=== PATIENT | female | born 1955 | race Caucasian/White ===

== ENCOUNTER 2016-12-15 16:17 | Emergency (ER) | payer SELFPAY ==
[~2016-12-15] VITALS: Ht 157.5 cm; Wt 79.4 kg
[2016-12-15 17:20] VITALS: BP 160/64
[2016-12-15] MEDS ORDERED: SULF1TAB24 PO (18:09)
--- NOTE | 2016-12-15 18:09 | PHYS DOC ---
Past Medical History Past Medical History: Diabetes-Type II, Hypertension Past Surgical History: No Surgical History Alcohol Use: None Drug Use: None Adult General Chief Complaint Chief Complaint: SKIN PROBLEM HPI HPI Patient is a 61 year old female presents to the emergency department stating that she's had abscesses on her abdomen on and off for quite some time. She states that they her leg ever come to a head or drainage any drainage. Patient does states she is an insulin-dependent diabetic in which she has been giving herself injections in the abdomen area she denies these areas that have abscesses being areas that she had provided her injections. Patient denies fever , chills or any nausea or vomiting. Patient does state that her glucoses have been running in 140s to 160s. Review of Systems Review of Systems Constitutional: Denies fever or chills [] Eyes: Denies change in visual acuity, redness, or eye pain [] HENT: Denies nasal congestion or sore throat [] Respiratory: Denies cough or shortness of breath [] Cardiovascular: No additional information not addressed in HPI [] GI: Denies abdominal pain, nausea, vomiting, bloody stools or diarrhea [] : Denies dysuria or hematuria [] Musculoskeletal: Denies back pain or joint pain [] Integument: Denies rash or skin to the abdomen Neurologic: Denies headache, focal weakness or sensory changes [] Allergies Allergies Allergies Coded Allergies Type Severity Reaction Last Updated Verified No Known Drug Allergies 12/15/16 No Physical Exam Physical Exam Constitutional: Well developed, well nourished, no acute distress, non-toxic appearance. [] HENT: Normocephalic, atraumatic, bilateral external ears normal, oropharynx moist, no oral exudates, nose normal. [] Eyes: PERRLA, EOMI, conjunctiva normal, no discharge. [] Neck: Normal range of motion, no tenderness, supple, no stridor. [] Cardiovascular:Heart rate regular rhythm, no murmur [] Lungs & Thorax: Bilateral breath sounds clear to auscultation [] Skin: Warm, dry, no erythema, no rash. Patient with an abscess approximately a quarter to the upper abdomen area there does appear to be a yellow spot in the middle that was able to be drained by squeezing the area. Back: No tenderness Extremities: No tenderness, no cyanosis, no clubbing, ROM intact, no edema. [] Neurologic: Alert and oriented X 3, normal motor function, normal sensory function, no focal deficits noted. [] Psychologic: Affect normal, judgement normal, mood normal. [] Current Patient Data Vital Signs Vital Signs Date Time Temp Pulse Resp B/P Pulse Ox O2 Delivery O2 Flow Rate FiO2 12/15/16 17:20 97.4 85 18 100 Room Air 97.4 EKG EKG [] Radiology/Procedures Radiology/Procedures [] Course & Med Decision Making Course & Med Decision Making Pertinent Labs and Imaging studies reviewed. (See chart for details) She was recommended to use warm moist packs to the area 4 times a day 20 minutes at a time. Patient will be placed on Bactrim with recommendations to follow-up the primary care physician in the next 3-5 days. Patient agrees with discharge instructions, treatment regimens and follow-up recommendations. Signs and symptoms to return back to the emergency department as been provided. [] Dragon Disclaimer Dragon Disclaimer This electronic medical record was generated, in whole or in part, using a voice recognition dictation system. Departure Departure Impression: Primary Impression: Abscess of skin of abdomen Disposition: HOME, SELF-CARE Condition: STABLE Referrals: UNKNOWN PCP NAME (PCP) Patient Instructions: Abscess, Phaz-sj-Lobb Additional Instructions: Activity as tolerated. Medications as prescribed. Warm moist packs to the abdominal wall 4 times a day. These warm packs need to be placed on the area for 20 minutes at a time. Tylenol or ibuprofen for pain and discomfort. Follow-up to primary care physician next 3-5 days. Return back to emergency prior signs symptoms of become worse. Scripts Sulfamethoxazole/Trimethoprim (Bactrim Ds Tablet)1 Each Tablet1 Tab PO BID #20 TAB Prov:ANDRAE DIAMOND NP 12/15/16 ANDRAE DIAMOND NP Dec 15, 2016 18:09
== END 2016-12-15 18:16 | disposition home or self-care (01) ==
LOC: ER 16:17
DX: L02.211 Cutaneous abscess of abdominal wall (principal); E11.9 Type 2 diabetes mellitus without complications; I10 Essential (primary) hypertension; Z79.4 Long term (current) use of insulin
CPT/HCPCS: 99283

== ENCOUNTER → 2018-12-03 | Outpatient (CLI) | payer MEDICAID, OTHER ==
[2018-10-14 11:00] VITALS: BP 148/68
[~2018-12-03] MED LIST: GLYB5TAB3 PO; LISI1TAB7 PO; METF500T16 PO; NICO2GUM42 BC; REGADENOSON 0.4 MG/5 ML DISP.SYRIN. IV ONE; SULF1TAB24 PO
--- NOTE | 2018-12-03 12:29 | RAD ---
MR#: [id number] Date of Study: 12/03/2018 Ordering Physician: NORMAN GONZALEZ, Referring Physician: ZECHARIAH GARCIA Tech: KANDACE Ward, ARRT (R) (N) APPROVED REPORT Test Type: Pharmacological Stress Nurse/Tech: Merle BRYANT Test Indications: Elevated troponin Cardiac History: HTN, Hyperlipidemia, See EMR Medications: See EMR Medical History: Smoker for 30yrs, DM, See EMR Resting ECG: SR with LVH Resting Heart Rate: 92 bpm Resting Blood Pressure: 131/69mmHg Pretest Chest Pain: No chest pain Nurse/Tech Notes Diminished Lung sounds, Heart tones regular Consent: The procedure was explained to the patient in lay terms. Informed consent was witnessed. Eleazar eout was entered into [employer]. History and Stress Test performed by RT Rosemarie (R) (N) Pharm. Details Pharmacologic stress testing was performed using 0.4mg per 5ml of regadenoson given intravenously ove r 7-10 seconds. Stress Symptoms NauseaNo chest pain or symptoms. POST EXERCISE Reason for Termination: Infusion complete Max HR: 98 bpm Max Blood Pressure: 118/58mmHg Chest Pain: No. Arrhythmia: No. ST Change: No. No changes from baseline ekg. INTERPRETATION Stress EKG Conclusion: Baseline EKG showed sinus rhythm, LVH with repolarization changes. Non diagno stic changes at peak stress. No arrhythmias. Imaging Protocol IMAGE PROTOCOL: Rest Tc-99m/stress Tc-99m 1 day Rest: Stress: Viability: Radiopharm.Tc99m GxqpfkzlkCc98g Sestamibi Xmqh18eCw 33mCi Img Date 12/03/2018 12/03/2018 Inj-Img [id number]. 90min. Rest Admin Site:IV - Right AntecubitalAdministrator:KANDACE Ward, ARRT (R)(N) Stress Admin Site: IV - Right AntecubitalAdministrator: RT Regino Houston)(N) STRESS DATA End Diast. Vol.66.0mlLVEDV index BSA37.0ml End Syst. Vol.19.0mlLVESV index BSA11.0ml Myocardial Vgab708.0gEject. Qlljniyv45.0% Stress Scores Regional WT2.00Summed WT19.00 Regional WM0.00Summed WM11.00 LV Perfusion Scintigraphic images were technically very difficult but there appears to be small reversible defect involving the apical wall consistent with ischemia. Wall Motion Normal left ventricle systolic function with ejection fraction calculated at 58%. LV Perf. Quant 17 Seg. SSS4.00 17 Seg. SRS0.00 17 Seg. SDS4.00 Stress Defect Extent (% LAD)8.10Rest Defect Extent (% LAD)0.00Rev. Defect Extent (% LAD)7.50 Stress Defect Extent (% LCX) 0.00Rest Defect Extent (% LCX)0.00Rev. Defect Extent (% LCX)0.00 Stress Defect Extent (% RCA)5.60Rest Defect Extent (% RCA)0.00Rev. Defect Extent (% RCA)5.60 Stress Defect Extent (% KOBE)7.20Rest Defect Extent (% KOBE)0.00Rev. Defect Extent (% KOBE)7.00 Conclusion 1. Regadenoson cardioisotope stress test was technically very difficult but there appears to be small amount of apical wall ischemia. 2. Normal left ventricular systolic function with ejection fraction calculated at 58%. 3. Low to intermediate risk for cardiac events. Signed by : Basim Eli, Electronically Approved : 12/03/2018 12:27:57
== END | disposition home or self-care (01) ==
LOC: NM 08:21
PROVIDERS: ATTEND Internal Medicine Cardiovascular Disease
DX: R79.89 Other specified abnormal findings of blood chemistry (principal); I10 Essential (primary) hypertension; E78.5 Hyperlipidemia, unspecified; E11.9 Type 2 diabetes mellitus without complications; Z79.01 Long term (current) use of anticoagulants; Z87.891 Personal history of nicotine dependence
CPT/HCPCS: 78452; 93017; 96374; A9500; J2785

== ENCOUNTER 2018-12-15 16:03 | Emergency (ER) | payer OTHER ==
[~2018-12-15] VITALS: Ht 157.5 cm; Wt 79.4 kg
[~2018-12-15 16:03] MED LIST changes: -REGADENOSON 0.4 MG/5 ML DISP.SYRIN. IV ONE
[2018-12-15 16:15] VITALS: BP 107/53
[2018-12-15 16:30] LABS: BILIRUBIN,URINE NEGATIVE (NEG); CLARITY,URINE CLEAR; COLOR,URINE YELLOW; NITRITE,URINE NEGATIVE (NEG); PH,URINE 5.5; PROTEIN,URINE NEGATIVE (NEG-TRACE); UROBILINOGEN,URINE 0.2 mg/dL (0.2 mg/dL)
[2018-12-15 16:39] LABS: HYALINE CASTS, URINE MANY /HPF; SQUAMOUS EPITHELIAL CELL,UR MANY /LPF
[2018-12-15 16:40] LABS: BACTERIA,URINE 0 /HPF (0-FEW)
[2018-12-15] MEDS ORDERED: INSULIN REGULAR 100 UNIT/ML 3ML VIAL. SQ ONE (18:00)
[2018-12-15] MEDS ORDERED: cefTRIAXone IM 250 MG VIAL IM ONE (18:00)
[2018-12-15] MEDS ORDERED: AZITHROMYCIN 250 MG TABLET. PO ONE (18:00)
[2018-12-15] MEDS ORDERED: ESTR30CR VG (18:21)
--- NOTE | 2018-12-15 18:21 | PHYS DOC ---
Past Medical History Past Medical History: Diabetes-Type II, Hypertension Past Surgical History: No Surgical History Alcohol Use: None Drug Use: None Adult General Chief Complaint Chief Complaint: VAGINAL PROBLEM HPI HPI Patient is a 63 year old [f__sex] who presents with [] Review of Systems Review of Systems Constitutional: Denies fever or chills [] Eyes: Denies change in visual acuity, redness, or eye pain [] HENT: Denies nasal congestion or sore throat [] Respiratory: Denies cough or shortness of breath [] Cardiovascular: No additional information not addressed in HPI [] GI: Denies abdominal pain, nausea, vomiting, bloody stools or diarrhea [] : Denies dysuria or hematuria [] Musculoskeletal: Denies back pain or joint pain [] Integument: Denies rash or skin lesions [] Neurologic: Denies headache, focal weakness or sensory changes [] Endocrine: Denies polyuria or polydipsia [] All other systems were reviewed and found to be within normal limits, except as documented in this note. Current Medications Current Medications Current Medications Medications (Trade) Dose Ordered Sig/Emiliana Start Time Stop Time Status Last Admin Dose Admin Azithromycin (Zithromax) 1,000 mg 1X ONCE 12/15/18 18:00 12/15/18 18:01 DC Ceftriaxone Sodium (Rocephin Im) 250 mg 1X ONCE 12/15/18 18:00 12/15/18 18:01 DC Insulin Human Regular (HumuLIN R VIAL) 16 unit 1X ONCE 12/15/18 18:00 12/15/18 18:01 DC Allergies Allergies Allergies Coded Allergies Type Severity Reaction Last Updated Verified No Known Drug Allergies 12/15/16 No Physical Exam Physical Exam Constitutional: Well developed, well nourished, no acute distress, non-toxic appearance. [] HENT: Normocephalic, atraumatic, bilateral external ears normal, oropharynx moist, no oral exudates, nose normal. [] Eyes: PERRLA, EOMI, conjunctiva normal, no discharge. [] Neck: Normal range of motion, no tenderness, supple, no stridor. [] Cardiovascular:Heart rate regular rhythm, no murmur [] Lungs & Thorax: Bilateral breath sounds clear to auscultation [] Abdomen: Bowel sounds normal, soft, no tenderness, no masses, no pulsatile masses. [] Skin: Warm, dry, no erythema, no rash. [] Back: No tenderness, no CVA tenderness. [] Extremities: No tenderness, no cyanosis, no clubbing, ROM intact, no edema. [] Neurologic: Alert and oriented X 3, normal motor function, normal sensory function, no focal deficits noted. [] Psychologic: Affect normal, judgement normal, mood normal. [] Current Patient Data Vital Signs Vital Signs Date Time Temp Pulse Resp B/P (MAP) Pulse Ox O2 Delivery O2 Flow Rate FiO2 12/15/18 16:15 98.7 92 16 107/53 (71) 99 Room Air 98.7 Lab Values Laboratory Tests Test 12/15/18 16:15 Urine Collection Type Unknown Urine Color Yellow Urine Clarity Clear Urine pH 5.5 Urine Specific [place] >=1.030 Urine Protein Negative mg/dL (NEG-TRACE) Urine Glucose (UA) >=1000 mg/dL (NEG) Urine Ketones (Stick) Negative mg/dL (NEG) Urine Blood Negative (NEG) Urine Nitrite Negative (NEG) Urine Bilirubin Negative (NEG) Urine Urobilinogen Dipstick 0.2 mg/dL (0.2 mg/dL) Urine Leukocyte Esterase Negative (NEG) Urine RBC 1-2 /HPF (0-2) Urine WBC 11-20 /HPF (0-4) Urine Squamous Epithelial Cells Many /LPF Urine Bacteria 0 /HPF (0-FEW) Urine Hyaline Casts Many /HPF Urine Mucus Mod /LPF Microbiology 12/15/18 Wet Prep - Final, Complete EKG EKG [] Radiology/Procedures Radiology/Procedures [] Course & Med Decision Making Course & Med Decision Making Pertinent Labs and Imaging studies reviewed. (See chart for details) [] Dragon Disclaimer Dragon Disclaimer This electronic medical record was generated, in whole or in part, using a voice recognition dictation system. Departure Departure Impression: Primary Impression: Vaginal irritation Additional Impression: Hyperglycemia Disposition: 01 HOME, SELF-CARE Condition: STABLE Referrals: JUSTUS PRABHAKAR (PCP) NORMAN HODGES Jr, MD Patient Instructions: Hyperglycemia, Vnsw-im-Nybc, Vaginitis, Atrophic, Easy-to -Read Scripts Estrogens, Conjugated (PREMARIN) 30 Gm Cream.appl 0.5 GM VG DAILY, #1 TUBE 0 Refills Prov: DENIA STARR DO 12/15/18 Problem Qualifiers DENIA STARR DO Dec 15, 2018 18:21
[2018-12-17 13:15] LABS: GC PROBE Negative (Negative)
== END 2018-12-15 18:35 | disposition home or self-care (01) ==
LOC: ER 16:03
DX: N89.8 Other specified noninflammatory disorders of vagina (principal); E11.65 Type 2 diabetes mellitus with hyperglycemia; I10 Essential (primary) hypertension
CPT/HCPCS: 81001; 82962; 87086; 87491; 87591; 96372; 99283; J0696; J1815; Q0111; Q0144